=== PATIENT | male | born 1985 | race Caucasian/White ===

== ENCOUNTER 2025-03-01 15:25 | Emergency (ER) | payer OTHER ==
[~2025-03-01] VITALS: Ht 188 cm; Wt 86.2 kg
[2025-03-01] MEDS ORDERED: AMOCLA875 PO ×2 (15:39→15:41)
[2025-03-01] MEDS ORDERED: Amoxicillin/Clavulanate K 875 MG Tab PO ONE (15:40)
[2025-03-01] MEDS ORDERED: Diphth,Pertuss(Acell),Tet Vac 0.5 ML VIAL IM ONE (15:40)
== END 2025-03-01 16:01 | disposition home or self-care (01) ==
LOC: ER 15:25
DX: S61.452A Open bite of left hand, initial encounter (principal); Z88.0 Allergy status to penicillin; Z88.1 Allergy status to other antibiotic agents; W54.0XXA Bitten by dog, initial encounter
CPT/HCPCS: 90471; 90715; 99283-25; A9270